=== PATIENT | female | born 1985 | race Caucasian/White ===

== ENCOUNTER → 2016-06-15 | Outpatient (REF) | payer BC ==
[2016-06-15 18:53] LABS: MAGNESIUM LEVEL 2.2 MG/DL (1.8-2.4); PERCENT SATURATION 17.4 % (13.2-37.4); PHOSPHORUS LEVEL 4.1 MG/DL (2.5-4.9)
[2016-06-16 13:36] LABS: PRETREATED FOLATE FOR RBCFOL 8.5 NG/ML
== END ==
LOC: M LAB REF 16:36
PROVIDERS: ATTEND Surgery
DX: K91.2 Postsurgical malabsorption, not elsewhere classified (principal); Z98.84 Bariatric surgery status; E55.9 Vitamin D deficiency, unspecified

== ENCOUNTER → 2016-06-15 | Outpatient (REF) | payer BC ==
[2016-06-15 18:52] LABS: ALBUMIN 4.3 GM/DL (3.2-5.2); ALBUMIN/GLOBULIN RATIO 1.54 (1.00-1.93); ALKALINE PHOSPHATASE 71 U/L (45-117); ALT/SGPT 19 U/L (12-78); ANION GAP 9 MEQ/L (8-16); AST/SGOT 13 U/L (15-37); BLOOD UREA NITROGEN 17 MG/DL (7-18); CALCIUM LEVEL 8.7 MG/DL (8.5-10.1); CARBON DIOXIDE LEVEL 27 MEQ/L (21-32); CHLORIDE LEVEL 105 MEQ/L (98-107); CREATININE FOR GFR 0.69 MG/DL (0.55-1.02); GLOMERULAR FILTRATION RATE > 60.0 (>60); GLUCOSE, FASTING 97 MG/DL (70-105); POTASSIUM SERUM 3.9 MEQ/L (3.5-5.1); SODIUM LEVEL 141 MEQ/L (136-145); TOTAL PROTEIN 7.1 GM/DL (6.4-8.2)
[2016-06-15 19:16] LABS: FREE T4 0.92 NG/DL (0.76-1.46)
[2016-06-15 19:19] LABS: BASO % 0.3 % (0.0-1.0); EOS # 0.1 K/mm3 (0.0-0.50); EOS % 1.3 % (0.0-3.0); LARGE UNSTAINED CELL # 0.1 K/mm3 (0.0-0.4); LARGE UNSTAINED CELL % 1.9 % (0.0-4.0); LYMPH # 2.7 K/mm3 (1.5-4.5); LYMPH % 34.8 % (24.0-44.0); MEAN CORPUSCULAR HEMOGLOBIN 28.7 pg (27.0-33.0); MEAN CORPUSCULAR HGB CONC 33.5 g/dl (32.0-36.5); MEAN CORPUSCULAR VOLUME 85.6 fl (80.0-96.0); MONO # 0.3 K/mm3 (0.0-0.8); MONO % 4.4 % (0.0-5.0); NEUTROPHILS # 4.1 K/mm3 (1.8-7.7); NEUTROPHILS % 57.3 % (36.0-66.0); PLATELET COUNT, AUTOMATED 215 k/mm3 (150-450); RED CELL DISTRIBUTION WIDTH 12.9 % (11.5-14.5); WHITE BLOOD COUNT 7.2 K/mm3 (4.0-10.0)
== END ==
LOC: M LAB REF 16:35
PROVIDERS: ATTEND Physician Assistant
DX: Z00.00 Encounter for general adult medical examination without abnormal findings (principal)

== ENCOUNTER → 2016-10-26 | Outpatient (CLI) | payer BC ==
[2016-10-27 09:15] LABS: HEPATITIS B SURFACE ANTIBODY NEGATIVE (POSITIVE)
== END ==
LOC: M WUC 08:53
PROVIDERS: ATTEND Physician Assistant
DX: Z02.0 Encounter for examination for admission to educational institution (principal)

== ENCOUNTER → 2016-12-22 | Outpatient (CLI) | payer BC ==
--- NOTE | 2016-12-22 13:54 | REP ---
CHEST, TWO VIEWS: COMPARISON: 05/06/2012. There is no evidence of acute infiltrate. No pleural effusion is seen. The heart is normal in size. The mediastinal silhouette is unremarkable. The visualized osseous structures are intact. IMPRESSION: No acute pulmonary disease. Signed by Oren Pride MD 12/22/2016 02:27 P
== END ==
LOC: M WUC 13:15
PROVIDERS: ATTEND Physician Assistant
DX: Z00.00 Encounter for general adult medical examination without abnormal findings (principal)

== ENCOUNTER → 2017-06-28 | Outpatient (REF) ==
[2017-06-29 11:00] LABS: HEPATITIS B SURFACE ANTIBODY POSITIVE (POSITIVE)
== END ==
LOC: M WUC 08:46
DX: Z11.59 Encounter for screening for other viral diseases (principal)

== ENCOUNTER → 2018-04-05 | Outpatient (CLI) | payer BC ==
[2018-04-05 12:18] LABS: BASO # 0.1 10^3/uL (0.0-0.2); BASO % 1.1 % (0.0-1.0); EOS # 0.1 10^3/uL (0.0-0.50); EOS % 1.9 % (0.0-3.0); HEMATOCRIT 35.2 % (36.0-47.0); HEMOGLOBIN 11.4 g/dl (12.0-15.5); LYMPH # 1.8 10^3/uL (1.5-4.5); LYMPH % 38.8 % (24.0-44.0); MEAN CORPUSCULAR HGB CONC 32.4 g/dl (32.0-36.5); MEAN CORPUSCULAR VOLUME 83.2 fl (80.0-96.0); MONO # 0.3 10^3/uL (0.0-0.8); MONO % 6.5 % (0.0-5.0); NEUTROPHILS # 2.4 10^3/uL (1.8-7.7); NEUTROPHILS % 51.5 % (36.0-66.0); PLATELET COUNT, AUTOMATED 224 10^3/uL (150-450); RED BLOOD COUNT 4.23 10^6/uL (4.00-5.40); WHITE BLOOD COUNT 4.7 10^3/uL (4.0-10.0)
[2018-04-05 13:08] LABS: ALBUMIN 3.8 GM/DL (3.2-5.2); ALT/SGPT 15 U/L (12-78); BILIRUBIN,TOTAL 0.9 MG/DL (0.2-1.0); BLOOD UREA NITROGEN 14 MG/DL (7-18); CALCIUM LEVEL 8.8 MG/DL (8.5-10.1); CARBON DIOXIDE LEVEL 27 MEQ/L (21-32); CHLORIDE LEVEL 108 MEQ/L (98-107); CHOLESTEROL LEVEL 137 MG/DL (<200); CHOLESTEROL RISK RATIO 2.044 (<5); CREATININE FOR GFR 0.65 MG/DL (0.55-1.30); FREE T4 0.97 NG/DL (0.76-1.46); GLOMERULAR FILTRATION RATE > 60.0 (>60); GLUCOSE, FASTING 86 MG/DL (70-100); HDL CHOLESTEROL 67 MG/DL (>40); IRON (FE) 51 UG/DL (50-170); LDL CHOLESTEROL 61 MG/DL (<100); NON-HDL-C 70 MG/DL; PERCENT SATURATION 10.7 % (13.2-45.0); POTASSIUM SERUM 4.7 MEQ/L (3.5-5.1); SODIUM LEVEL 142 MEQ/L (136-145); TOTAL IRON BINDING CAPACITY 476 UG/DL (250-450); TOTAL PROTEIN 6.4 GM/DL (6.4-8.2); TRIGLYCERIDES LEVEL 47 MG/DL (<150)
[2018-04-05 13:24] LABS: TOTAL 25(OH) VITAMIN D 38.6 NG/ML (30.0-100.0)
== END ==
LOC: M WUC 09:31
PROVIDERS: ATTEND Physician Assistant
DX: Z00.00 Encounter for general adult medical examination without abnormal findings (principal); Z13.220 Encounter for screening for lipoid disorders; Z13.29 Encounter for screening for other suspected endocrine disorder; Z98.84 Bariatric surgery status

== ENCOUNTER → 2018-06-07 | Outpatient (CLI) | payer BC ==
--- NOTE | 2018-06-07 09:32 | REP ---
BILATERAL MAMMOGRAM WITH 3D TOMOSYNTHESIS, DIAGNOSTIC MAMMOGRAM LEFT BREAST WITH LEFT BREAST ULTRASOUND: HISTORY: Palpable lump inferomedial left breast for 1 week. Family history of breast cancer in maternal grandmother age 55. Tyrer-Cuzick lifetime risk of breast cancer 15.9%. There are no prior studies for comparison. There are moderate fairly symmetric fibroglandular tissue bilaterally. No mass or architectural distortion is seen. No clustered microcalcifications are seen. Real-time sonographic evaluation of the left breast performed in the region of the palpable lump inferomedially. Tiny cyst is seen at that location measuring 4 mm in diameter. No other cystic or solid nodule is seen in that region. IMPRESSION: BIRADS 2: BI-RADS/ACR category 2 mammogram. Benign Findings. No mass or clustered microcalcifications by mammography. By ultrasound at the site of the palpable lump inferomedially there is a 4 mm cyst which appears benign. Recommend followup mammogram in 1 year. This mammogram was interpreted with the aid of an FDA-approved computer-aided detection system. The patient states he/she had a clinical breast exam in 06/06/2018. The patient letter being requested is M2. Electronically Signed by Oren Pride MD 06/10/2018 10:55 A
== END ==
LOC: M RAD 07:32
PROVIDERS: ATTEND Nurse Practitioner Women's Health
DX: N60.02 Solitary cyst of left breast (principal); Z80.3 Family history of malignant neoplasm of breast
CPT/HCPCS: 76642; 77066; G0279

== ENCOUNTER → 2019-02-25 | Outpatient (REF) | payer BC ==
[2019-02-25 11:43] LABS: BASO % 0.6 % (0.0-1.0); EOS # 0.1 10^3/uL (0.0-0.5); EOS % 1.4 % (0.0-3.0); HEMATOCRIT 39.7 % (36.0-47.0); HEMOGLOBIN 12.3 g/dl (12.0-15.5); LYMPH % 31.7 % (24.0-44.0); MEAN CORPUSCULAR HEMOGLOBIN 26.9 pg (27.0-33.0); MEAN CORPUSCULAR VOLUME 86.9 fl (80.0-96.0); MONO # 0.5 10^3/uL (0.0-0.8); MONO % 7.5 % (0.0-5.0); NEUTROPHILS # 3.7 10^3/uL (1.5-8.5); NEUTROPHILS % 58.6 % (36.0-66.0); PLATELET COUNT, AUTOMATED 253 10^3/uL (150-450); RED BLOOD COUNT 4.57 10^6/uL (4.00-5.40); WHITE BLOOD COUNT 6.2 10^3/uL (4.0-10.0)
[2019-02-25 12:10] LABS: ALBUMIN 3.9 GM/DL (3.2-5.2); ALT/SGPT 19 U/L (12-78); BLOOD UREA NITROGEN 15 MG/DL (7-18); CALCIUM LEVEL 8.6 MG/DL (8.5-10.1); CARBON DIOXIDE LEVEL 28 MEQ/L (21-32); CHLORIDE LEVEL 110 MEQ/L (98-107); CREATININE FOR GFR 0.71 MG/DL (0.55-1.30); FERRITIN 7 NG/ML (8-252); FOLATE > 24.0 NG/ML; FREE T4 1.02 NG/DL (0.76-1.46); GLOMERULAR FILTRATION RATE > 60.0 (>60); GLUCOSE, FASTING 69 MG/DL (70-100); IRON (FE) 109 UG/DL (50-170); PERCENT SATURATION 23.2 % (13.2-45.0); POTASSIUM SERUM 3.8 MEQ/L (3.5-5.1); SODIUM LEVEL 141 MEQ/L (136-145); THYROID STIMULATING HORMONE 0.454 uIU/ML (0.358-3.740); TOTAL 25(OH) VITAMIN D 54.6 NG/ML (30.0-100.0); TOTAL IRON BINDING CAPACITY 469 UG/DL (250-450); TOTAL PROTEIN 6.9 GM/DL (6.4-8.2); VITAMIN B12 LEVEL 507 PG/ML
== END ==
LOC: M LAB REF 10:43
PROVIDERS: ATTEND Physician Assistant
DX: Z00.00 Encounter for general adult medical examination without abnormal findings (principal); Z98.84 Bariatric surgery status; D50.9 Iron deficiency anemia, unspecified; Z13.29 Encounter for screening for other suspected endocrine disorder

== ENCOUNTER → 2020-06-11 | Outpatient (CLI) | payer BC ==
--- NOTE | 2020-06-11 13:57 | REP ---
INDICATION: BROKEN PARAGUARD COMPARISON: None. TECHNIQUE: Transabdominal pelvic ultrasound followed by transvaginal examination for better evaluation of the endometrium and adnexa with color Doppler evaluation of the ovaries. FINDINGS: Bladder is unremarkable and measures 9.8 x 6.2 x 3.5 cm. Normal anteverted uterus measures 8.7 x 5.0 x 5.8 cm. The endometrial complex measures 3 mm thickness. A linear foreign body consistent with fractured contraceptive device identified within the lower uterine segment/cervical region. No associated abnormal fluid collection noted. Bilateral ovaries are normal in appearance and vascularity without evidence for torsion. Right ovary measures 3.1 x 1.6 x 2.1 cm; R I = 0.48. Left ovary measures 2.4 x 1.8 x 2.1 cm; R I = 0.51. No pelvic fluid or adnexal mass lesion. IMPRESSION: Residual portion of the uterine device is identified within the lower uterine segment/cervical region. <Electronically signed by José Antonio Caban > 06/11/20 [id number]
== END ==
LOC: M RAD 12:38
PROVIDERS: ATTEND Physician Assistant
DX: T83.39XA Other mechanical complication of intrauterine contraceptive device, initial encounter (principal)

== ENCOUNTER → 2020-06-18 | Outpatient (CLI) | payer BC ==
[~2020-06-18] MED LIST: BARI1CAP PO; FERR325T3 PO; NOXI1TAB PO
== END ==
LOC: M LABSMTC 11:16
PROVIDERS: ATTEND Anesthesiology
DX: Z01.812 Encounter for preprocedural laboratory examination (principal)

== ENCOUNTER 2020-06-22 10:56 | Day surgery (SDC) | payer BC ==
[~2020-06-22] VITALS: Ht 165.1 cm; Wt 88.9 kg
[~2020-06-22 10:56] MED LIST changes: +LR 1,000 ML IV ONE
[2020-06-22] MEDS ORDERED: dexameTHASONE 4 MG/ML 1ML VIAL (J1100 PER 1MG) As Ordered ONE ×2 (11:27→13:07)
[2020-06-22] MEDS ORDERED: ONDANSETRON 4MG/2ML VIAL As Ordered ONE ×2 (11:27→13:07)
[2020-06-22] MEDS ORDERED: LIDOCAINE 2% 100MG/5ML SDV (FOR ANES.) As Ordered ONE ×2 (11:27→13:07)
[2020-06-22] MEDS ORDERED: propofoL 200 MG/20 ML VIAL As Ordered ONE ×2 (11:27→13:07)
[2020-06-22] MEDS ORDERED: fentaNYL 100 MCG/2 ML INJECTION (J3010) As Ordered ONE ×2 (11:28→13:07)
[2020-06-22] MEDS ORDERED: MIDAZOLAM INJ 2MG/2ML VIAL (J2250 PER 1MG) As Ordered ONE ×2 (11:28→13:07)
[2020-06-22] MEDS ORDERED: LEVONORGESTREL 52MG (MIRENA) IUD As Ordered ONE (12:42)
[2020-06-22] MEDS ORDERED: KETOROLAC 60MG 2ML VIAL As Ordered ONE (13:14)
[2020-06-22] MEDS ORDERED: ONDANSETRON 4MG/2ML VIAL IV PRN (14:00)
[2020-06-22] MEDS ORDERED: oxyCODONE 5MG TAB PO PRN (14:00)
[2020-06-22] MEDS ORDERED: PERCOCET 5MG/325MG TAB PO PRN (14:00)
[2020-06-22] MEDS ORDERED: LR 1,000 ML IV SCH (14:00)
[2020-06-22] MEDS ORDERED: fentaNYL 100 MCG/2 ML INJECTION (J3010) IV PRN (14:00)
--- NOTE | 2020-06-22 14:03 | ROOPDOC ---
[facility] Report Of Operation Report of Operation DATE OF PROCEDURE: 06/22/2020 PREOPERATIVE DIAGNOSES: 1. Retained fragmented intrauterine device POSTOPERATIVE DIAGNOSES: 1. Retained fragmented intrauterine device PROCEDURE PERFORMED: Hysteroscopy with removal of intrauterine device. Placement of Mirena intrauterine device. SURGEON: Brandy Birmingham MD SHE[employer] TRADES WORKER: None. ANESTHESIA: General via laryngeal mask airway ESTIMATED BLOOD LOSS: 5ml IV FLUIDS: 900mL of lactated Ringer's solution. URINE OUTPUT: Not obtained. PREOPERATIVE ANTIBIOTICS: None. OPERATIVE FINDINGS: Normal-appearing endometrial cavity. Fragmented intrauterine device in the upper portion of the cervix. Bilateral ostia was visualized. DESCRIPTION OF PROCEDURE: After informed consent was obtained written consent was reviewed, the patient brought to operating room where she was placed under general anesthesia. She was then placed in lithotomy position and was prepped and draped in normal sterile fashion. Time-out in the operating room was then performed identifying the patient, procedure be performed as well as drug allergies. [place] speculum was placed revealing the cervix. Anterior lip of the cervix grasped with a single-tooth tenaculum. The uterus then sounded to 9.5 cm. The cervix then sequentially dilated using Hanks dilators. Hysteroscope was then advanced through the cervical os and endometrial cavity was observed with the above-noted findings. Hysteroscopic grasper was then advanced to the hysteroscopic scope. The intrauterine device fragment was grasped was removed intact. Hysteroscope was then removed. Next, the Mirena intrauterine device was tested advanced cervical os was deployed. Trocar was removed and the strings trimmed. The single-tooth tenaculum was then removed. Tenaculum sites were noted be hemo static. The speculum was then removed. The patient was then taken out of lithotomy position, was awakened from general anesthesia and taken recovery in stable condition. BRANDY BIRMINGHAM MD. Jun 22, 2020 14:03
[2020-06-22 15:05] VITALS: BP 139/86
== END 2020-06-22 15:05 | disposition home or self-care (01) ==
LOC: M SDC 10:56
PROVIDERS: ATTEND Obstetrics & Gynecology
DX: T83.31XA Breakdown (mechanical) of intrauterine contraceptive device, initial encounter (principal); Y76.2 Prosthetic and other implants, materials and accessory obstetric and gynecological devices associated with adverse incidents; M23.92 Unspecified internal derangement of left knee; Z86.19 Personal history of other infectious and parasitic diseases; Z98.84 Bariatric surgery status; Z88.0 Allergy status to penicillin; Z88.8 Allergy status to other drugs, medicaments and biological substances; Z88.1 Allergy status to other antibiotic agents; Z79.899 Other long term (current) drug therapy
CPT/HCPCS: 58300; 58562; 81025; J1100; J1885; J2250; J2405; J3010; J7298

== ENCOUNTER → 2021-06-30 | Outpatient (CLI) | payer BC ==
[~2021-06-30] MED LIST changes: -LR 1,000 ML IV ONE
[2021-06-30 10:12] LABS: BASO # 0.1 10^3/uL (0.0-0.2); EOS # 0.1 10^3/uL (0.0-0.5); EOS % 1.9 % (0.0-3.0); HEMATOCRIT 36.2 % (36.0-47.0); HEMOGLOBIN 11.3 g/dl (12.0-15.5); LYMPH % 37.9 % (24.0-44.0); MEAN CORPUSCULAR HEMOGLOBIN 24.8 pg (27.0-33.0); MEAN CORPUSCULAR HGB CONC 31.2 g/dl (32.0-36.5); MEAN CORPUSCULAR VOLUME 79.4 fl (80.0-96.0); MONO # 0.4 10^3/uL (0.0-0.8); MONO % 7.3 % (2.0-8.0); NEUTROPHILS # 2.7 10^3/uL (1.5-8.5); NEUTROPHILS % 51.7 % (36.0-66.0); PLATELET COUNT, AUTOMATED 229 10^3/uL (150-450); RED BLOOD COUNT 4.56 10^6/uL (4.00-5.40); WHITE BLOOD COUNT 5.2 10^3/uL (4.0-10.0)
[2021-06-30 11:18] LABS: ALT/SGPT 15 U/L (12-78); BILIRUBIN,TOTAL 1.3 MG/DL (0.2-1.0); BLOOD UREA NITROGEN 17 MG/DL (7-18); CALCIUM LEVEL 9.1 MG/DL (8.5-10.1); CARBON DIOXIDE LEVEL 28 MEQ/L (21-32); CHLORIDE LEVEL 108 MEQ/L (98-107); CREATININE FOR GFR 0.71 MG/DL (0.55-1.30); FOLATE 11.6 NG/ML; GLOMERULAR FILTRATION RATE > 60.0 (>60); GLUCOSE, FASTING 83 MG/DL (70-100); IRON (FE) 71 UG/DL (50-170); PERCENT SATURATION 14.3 % (13.2-45.0); POTASSIUM SERUM 3.8 MEQ/L (3.5-5.1); SODIUM LEVEL 139 MEQ/L (136-145); TOTAL 25(OH) VITAMIN D 40.4 NG/ML (30.0-100.0); TOTAL IRON BINDING CAPACITY 496 UG/DL (250-450); TOTAL PROTEIN 6.6 GM/DL (6.4-8.2); VITAMIN B12 LEVEL 436 PG/ML
== END ==
LOC: M WUC 08:01
PROVIDERS: ATTEND Family Medicine
DX: Z00.00 Encounter for general adult medical examination without abnormal findings (principal); Z98.84 Bariatric surgery status

== ENCOUNTER → 2021-07-19 | Outpatient (REF) | LOC: M LAB 15:32 | PROVIDERS: ATTEND Nurse Practitioner Adult Health | DX: Z00.00 Encounter for general adult medical examination without abnormal findings (principal) ==

== ENCOUNTER → 2022-04-21 | Outpatient (CLI) | payer BC ==
[2022-04-21 10:47] LABS: BASO % 0.8 % (0.0-1.0); EOS # 0.1 10^3/uL (0.0-0.5); EOS % 1.8 % (0.0-3.0); HEMATOCRIT 36.9 % (36.0-47.0); HEMOGLOBIN 11.2 g/dl (12.0-15.5); LYMPH # 1.9 10^3/uL (1.5-5.0); LYMPH % 37.1 % (24.0-44.0); MEAN CORPUSCULAR HEMOGLOBIN 25.2 pg (27.0-33.0); MEAN CORPUSCULAR HGB CONC 30.4 g/dl (32.0-36.5); MEAN CORPUSCULAR VOLUME 82.9 fl (80.0-96.0); MONO # 0.4 10^3/uL (0.0-0.8); MONO % 8.6 % (2.0-8.0); NEUTROPHILS # 2.6 10^3/uL (1.5-8.5); NEUTROPHILS % 50.9 % (36.0-66.0); PLATELET COUNT, AUTOMATED 226 10^3/uL (150-450); RED BLOOD COUNT 4.45 10^6/uL (4.00-5.40)
[2022-04-21 11:05] LABS: IRON (FE) 43 UG/DL (50-170); PERCENT SATURATION 9.4 % (13.2-45.0); THYROID STIMULATING HORMONE 0.616 uIU/ML (0.55-4.78); TOTAL 25(OH) VITAMIN D 29.3 NG/ML (20.0-100.0); TOTAL IRON BINDING CAPACITY 459 UG/DL (250-425)
[2022-04-21 11:06] LABS: ALBUMIN 3.9 G/DL (3.2-5.2); ALKALINE PHOSPHATASE 59 U/L (46-116); ALT/SGPT 12 U/L (7.0-40); AST/SGOT 14 U/L (<34); BLOOD UREA NITROGEN 15 MG/DL (9-23); CALCIUM LEVEL 8.8 MG/DL (8.5-10.1); CARBON DIOXIDE LEVEL 28 MMOL/L (20-31); CHLORIDE LEVEL 107 MMOL/L (98-107); CHOLESTEROL LEVEL 137 MG/DL (<200); CHOLESTEROL RISK RATIO 2.04 (<5); CREATININE FOR GFR 0.66 MG/DL (0.55-1.30); GLOMERULAR FILTRATION RATE > 60.0 (>60); GLUCOSE, FASTING 85 MG/DL (60-100); HDL CHOLESTEROL 66.9 MG/DL (>40); LDL CHOLESTEROL 61.9 MG/DL (<100); NON-HDL-C 70 MG/DL; POTASSIUM SERUM 4.1 MMOL/L (3.5-5.1); SODIUM LEVEL 140 MMOL/L (136-145); TRIGLYCERIDES LEVEL 41 MG/DL (<150)
[2022-04-21 11:07] LABS: FOLATE 9.8 NG/ML (>5.4); VITAMIN B12 LEVEL 356 PG/ML (211-911)
[2022-04-21 11:08] LABS: FREE T4 0.86 NG/DL (0.89-1.76)
== END ==
LOC: M PLALAB 07:11
PROVIDERS: ATTEND Nurse Practitioner Adult Health
DX: D50.9 Iron deficiency anemia, unspecified (principal); E55.9 Vitamin D deficiency, unspecified; Z13.220 Encounter for screening for lipoid disorders; Z13.29 Encounter for screening for other suspected endocrine disorder; Z98.84 Bariatric surgery status

== ENCOUNTER → 2022-06-08 | Outpatient (REF) | payer BC | LOC: M SFHCWAGY 10:09 | PROVIDERS: ATTEND Advanced Practice Midwife | DX: Z12.4 Encounter for screening for malignant neoplasm of cervix (principal); R87.610 Atypical squamous cells of undetermined significance on cytologic smear of cervix (ASC-US) | CPT/HCPCS: 87624; G0123 ==

== ENCOUNTER → 2022-07-05 | Outpatient (CLI) | payer BC | LOC: M WHC 12:09 | PROVIDERS: ATTEND Advanced Practice Midwife | DX: N85.2 Hypertrophy of uterus (principal); Z97.5 Presence of (intrauterine) contraceptive device ==

== ENCOUNTER → 2022-09-12 | Outpatient (REF) | LOC: M EMP 08:20 | PROVIDERS: ATTEND Family Medicine | DX: Z20.822 Contact with and (suspected) exposure to COVID-19 (principal) ==

== ENCOUNTER → 2022-11-10 | Outpatient (CLI) | payer BC ==
[2022-11-10 16:04] LABS: BASO # 0.1 10^3/uL (0.0-0.2); BASO % 0.7 % (0.0-1.0); EOS # 0.2 10^3/uL (0.0-0.5); EOS % 2.7 % (0.0-3.0); HEMATOCRIT 37.1 % (36.0-47.0); LYMPH # 2.1 10^3/uL (1.5-5.0); LYMPH % 31.6 % (24.0-44.0); MEAN CORPUSCULAR HEMOGLOBIN 24.2 pg (27.0-33.0); MEAN CORPUSCULAR HGB CONC 29.6 g/dl (32.0-36.5); MEAN CORPUSCULAR VOLUME 81.5 fl (80.0-96.0); MONO # 0.5 10^3/uL (0.0-0.8); MONO % 7.1 % (2.0-8.0); NEUTROPHILS # 3.9 10^3/uL (1.5-8.5); NEUTROPHILS % 57.6 % (36.0-66.0); PLATELET COUNT, AUTOMATED 265 10^3/uL (150-450); RED BLOOD COUNT 4.55 10^6/uL (4.00-5.40); WHITE BLOOD COUNT 6.7 10^3/uL (4.0-10.0)
[2022-11-10 16:32] LABS: PERCENT SATURATION 5.1 % (13.2-45.0)
== END ==
LOC: M PLALAB 13:52
PROVIDERS: ATTEND Nurse Practitioner Adult Health
DX: D50.9 Iron deficiency anemia, unspecified (principal)

== ENCOUNTER 2022-11-15 15:52 | Outpatient (CLI) | payer BC ==
[~2022-11-15] VITALS: Ht 166.4 cm; Wt 97.2 kg
[2022-11-15 16:00] VITALS: BP 141/83; O2SAT 100
[2022-11-15] MEDS ORDERED: FERRIC CARBOXYMALTOSE INJ 750 MG in NS 250 ML (>50kg) IV ONE ×3 (16:10)
[2022-11-15] MEDS ORDERED: VENL37TA PO (16:24)
[2022-11-15 17:36] VITALS: BP 129/84; O2SAT 100
== END 2022-11-15 17:35 ==
LOC: M INFU 15:52
PROVIDERS: ATTEND Nurse Practitioner Adult Health
DX: D50.9 Iron deficiency anemia, unspecified (principal); Z88.0 Allergy status to penicillin; Z88.8 Allergy status to other drugs, medicaments and biological substances
CPT/HCPCS: 96365; J1439

== ENCOUNTER 2022-11-22 15:30 | Outpatient (CLI) | payer BC ==
[~2022-11-22] VITALS: Ht 166.4 cm; Wt 97.7 kg
[2022-11-22 15:30] VITALS: BP 141/75; O2SAT 100
[~2022-11-22 15:30] MED LIST changes: +VENL37TA PO
[2022-11-22] MEDS ORDERED: FERRIC CARBOXYMALTOSE INJ 750 MG in NS 250 ML (>50kg) IV ONE ×3 (15:40)
[2022-11-22 17:15] VITALS: BP 118/76; O2SAT 100
== END 2022-11-22 17:15 ==
LOC: M INFU 15:30
PROVIDERS: ATTEND Nurse Practitioner Adult Health
DX: D50.9 Iron deficiency anemia, unspecified (principal); Z88.0 Allergy status to penicillin; Z88.8 Allergy status to other drugs, medicaments and biological substances
CPT/HCPCS: 96365; J1439

== ENCOUNTER → 2023-04-20 | Outpatient (REF) | LOC: M EMP 10:11 | PROVIDERS: ATTEND Family Medicine | DX: Z11.52 Encounter for screening for COVID-19 (principal) ==

== ENCOUNTER → 2023-06-19 | Outpatient (CLI) | payer BC ==
[2023-06-19 10:40] LABS: BASO % 0.7 % (0.0-1.0); EOS # 0.1 10^3/uL (0.0-0.5); HEMATOCRIT 40.7 % (36.0-47.0); HEMOGLOBIN 13.3 g/dl (12.0-15.5); LYMPH # 2.2 10^3/uL (1.5-5.0); MEAN CORPUSCULAR HEMOGLOBIN 28.9 pg (27.0-33.0); MEAN CORPUSCULAR HGB CONC 32.7 g/dl (32.0-36.5); MEAN CORPUSCULAR VOLUME 88.5 fl (80.0-96.0); MONO # 0.4 10^3/uL (0.0-0.8); MONO % 6.6 % (2.0-8.0); NEUTROPHILS # 3.3 10^3/uL (1.5-8.5); NEUTROPHILS % 54.5 % (36.0-66.0); PLATELET COUNT, AUTOMATED 213 10^3/uL (150-450); WHITE BLOOD COUNT 6.1 10^3/uL (4.0-10.0)
[2023-06-19 11:05] LABS: PERCENT SATURATION 39.3 % (13.2-45.0)
== END ==
LOC: M PLALAB 07:54
PROVIDERS: ATTEND Nurse Practitioner Adult Health
DX: D50.9 Iron deficiency anemia, unspecified (principal)

== ENCOUNTER → 2023-12-07 | Outpatient (CLI) | payer BC | LOC: M WHC 14:55 | PROVIDERS: ATTEND Advanced Practice Midwife | DX: Z12.31 Encounter for screening mammogram for malignant neoplasm of breast (principal); R92.333 Mammographic heterogeneous density, bilateral breasts; N63.21 Unspecified lump in the left breast, upper outer quadrant ==

== ENCOUNTER → 2023-12-07 | Outpatient (REF) | payer BC ==
[2023-12-12 13:52] LABS: HPV APTIMA Not Detected (Not Detected)
== END ==
LOC: M PLALAB 15:59
PROVIDERS: ATTEND Advanced Practice Midwife
DX: Z12.4 Encounter for screening for malignant neoplasm of cervix (principal); R87.615 Unsatisfactory cytologic smear of cervix

== ENCOUNTER → 2024-12-02 | Outpatient (CLI) | payer BC ==
[2024-12-02 09:39] LABS: BASO # 0.0 10^3/uL (0.0-0.2); BASO % 0.7 % (0.0-1.0); EOS # 0.1 10^3/uL (0.0-0.5); EOS % 2.0 % (0.0-3.0); LYMPH # 2.0 10^3/uL (1.5-5.0); LYMPH % 33.6 % (24.0-44.0); MONO # 0.4 10^3/uL (0.0-0.8); MONO % 6.2 % (2.0-8.0); NEUTROPHILS # 3.4 10^3/uL (1.5-8.5); NEUTROPHILS % 57.2 % (36.0-66.0); PLATELET COUNT, AUTOMATED 198 10^3/uL (150-450)
[2024-12-02 10:00] LABS: CALCIUM LEVEL 9.2 MG/DL (8.5-10.1); CARBON DIOXIDE LEVEL 26 MMOL/L (20-31); CHLORIDE LEVEL 106 MMOL/L (98-107); CREATININE FOR GFR 0.62 MG/DL (0.55-1.30); GLOMERULAR FILTRATION RATE > 90.0 (>58); IRON (FE) 110 UG/DL (50-170); PERCENT SATURATION 34.1 % (13.2-45.0); POTASSIUM SERUM 3.9 MMOL/L (3.5-5.1); SODIUM LEVEL 140 MMOL/L (136-145)
[2024-12-02 10:03] LABS: FREE T4 1.17 NG/DL (0.89-1.76); TOTAL 25(OH) VITAMIN D 30.6 NG/ML (20.0-100.0)
[2024-12-06 14:33] LABS: LYME TOTAL ANTIBODY CIA <= 0.90 Index (<=0.90)
== END ==
LOC: M LAB 08:57
PROVIDERS: ATTEND Nurse Practitioner Adult Health
DX: D50.9 Iron deficiency anemia, unspecified (principal); E55.9 Vitamin D deficiency, unspecified; F41.1 Generalized anxiety disorder; S30.861A Insect bite (nonvenomous) of abdominal wall, initial encounter; W57.XXXA Bitten or stung by nonvenomous insect and other nonvenomous arthropods, initial encounter; Y92.9 Unspecified place or not applicable; Y93.9 Activity, unspecified; Y99.9 Unspecified external cause status